=== PATIENT | female | born 1960 | race Caucasian/White ===

== ENCOUNTER → 2018-08-04 13:27 | Outpatient (CLI) | payer BC, SELFPAY ==
--- NOTE | 2018-08-04 | DI.MRI.S_ITS ---
PROCEDURE: MR HEAD/BRAIN WO/W CON INDICATIONS: VISION LOSS TECHNIQUE: Noncontrast axial T1 spin echo, axial T2 fast spin echo, sagittal and axial FLAIR, coronal T2 fast spin echo, axial gradient echo, axial diffusion and ADC through the brain. After the administration of contrast, axial and coronal 3D VIBE or T1 spin echo with fat saturation through the brain. COMPARISON: [facility], , MRI HEAD W/O CONTRAST, 03/18/2003, 10:13. FINDINGS: Image quality: Excellent. CSF Spaces: Basal cisterns are patent. No extra-axial fluid collections. Ventricles are normal in size and shape. Brain: No midline shift. 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 No intracranial bleeds or masses. No abnormal intracranial enhancement. The brainstem appears normal. Diffusion-weighted images demonstrate no acute ischemic insults. No chronic ischemic insults. Normal intravascular flow voids are present. Skull and face: Calvarial marrow is normal in signal. Orbits appear normal. Sinuses: Sinuses and mastoids appear clear. IMPRESSION: 1. No acute intracranial abnormality. No explanation for vision loss. 2. 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 Dictated by: Luis Rutledge M.D. on 08/04/2018 at 16:14 Approved by: Luis Rutledge M.D. on 08/04/2018 at 16:16
== END ==
PROVIDERS: PCP Family Medicine; Visit Provider Family Medicine
DX: H54.7 Unspecified visual loss (principal)
CPT/HCPCS: 70553; A9579

== ENCOUNTER → 2019-03-11 07:44 | Outpatient (CLI) | payer BC, SELFPAY ==
--- NOTE | 2019-03-11 | DI.MG.S_ITS ---
BILATERAL DIGITAL SCREENING MAMMOGRAM 3D/2D WITH CAD: 03/11/2019 CLINICAL: Routine screening. Family history of breast cancer. Comparison is made to exams dated: 02/19/2018 mammogram, 12/25/2016 mammogram, and 12/22/2015 mammogram - [facility]. The tissue of both breasts is heterogeneously dense. This may lower the sensitivity of mammography. Current study was also evaluated with a Computer Aided Detection (CAD) system. No significant masses, calcifications, or other findings are seen in either breast. There has been no significant interval change. IMPRESSION: NEGATIVE There is no mammographic evidence of malignancy. A 1 year screening mammogram is recommended. This exam was interpreted at Station ID: [id number]. NOTE: For mammograms, a report in lay terms will be sent to the patient. Approximately 15% of breast malignancies will not be visualized mammographically. In the management of a palpable breast mass, a negative mammogram must not discourage biopsy of a clinically suspicious lesion. Electronically Signed By: Simon escobar/kamla:03/11/2019 12:28:28 copy to: WENDY REINOSO letter sent: Normal Exam ACR BI-RADS Category 1: Negative 3341F
== END ==
PROVIDERS: PCP Family Medicine; Referring Provider Nurse Practitioner Family; Visit Provider Family Medicine
DX: Z12.31 Encounter for screening mammogram for malignant neoplasm of breast (principal); Z80.3 Family history of malignant neoplasm of breast
CPT/HCPCS: 77063; 77067

== ENCOUNTER → 2020-04-19 13:19 | Outpatient (CLI) | payer BC, SELFPAY ==
--- NOTE | 2020-04-19 | DI.MG.S_ITS ---
BILATERAL DIGITAL SCREENING MAMMOGRAM 3D/2D WITH CAD: 04/19/2020 CLINICAL: Routine screening. Family history of breast cancer. Comparison is made to exams dated: 03/11/2019 mammogram, 02/19/2018 mammogram, and 12/25/2016 mammogram - [facility]. The tissue of both breasts is heterogeneously dense. This may lower the sensitivity of mammography. Current study was also evaluated with a Computer Aided Detection (CAD) system. No significant masses, calcifications, or other findings are seen in either breast. There has been no significant interval change. IMPRESSION: NEGATIVE There is no mammographic evidence of malignancy. A 1 year screening mammogram is recommended. This exam was interpreted at Station ID: [id number]. NOTE: For mammograms, a report in lay terms will be sent to the patient. Approximately 15% of breast malignancies will not be visualized mammographically. In the management of a palpable breast mass, a negative mammogram must not discourage biopsy of a clinically suspicious lesion. Electronically Signed By: Ema armando/kamla:04/19/2020 13:56:17 letter sent: Normal Exam ACR BI-RADS Category 1: Negative 3341F
== END ==
PROVIDERS: PCP Family Medicine; Referring Provider Internal Medicine; Visit Provider Internal Medicine
DX: Z12.31 Encounter for screening mammogram for malignant neoplasm of breast (principal); Z80.3 Family history of malignant neoplasm of breast
CPT/HCPCS: 77063; 77067

== ENCOUNTER → 2020-08-30 15:01 | Outpatient (CLI) | payer BC, SELFPAY ==
--- NOTE | 2020-08-30 | DI.RAD.S_ITS ---
PROCEDURE: XR ANKLE RT MIN 3V INDICATIONS: RT ANKLE PAIN TECHNIQUE: 3 views of the ankle were acquired. COMPARISON: [facility], CR, FOOT 3V RIGHT, 09/08/2010, 13:12. [facility], CR, XR FOOT RT MIN 3V, 08/30/2020, 15:04. FINDINGS: Bones: No fractures or dislocations. Ankle mortise is normally aligned. No suspicious bony lesions. Medial malleolar fixation with hardware intact and good anatomic alignment. Soft tissues: No tibiotalar joint effusion. Achilles tendon appears normal. IMPRESSION: Medial malleolar fixation as above.. Dictated by: Bridgett Osorio M.D. on 08/30/2020 at 16:25 Approved by: Bridgett Osorio M.D. on 08/30/2020 at 16:27
--- NOTE | 2020-08-30 | DI.RAD.S_ITS ---
PROCEDURE: XR FOOT RT MIN 3V INDICATIONS: RT FOOT PAIN TECHNIQUE: 3 views of the foot were acquired. COMPARISON: [facility], CR, XR ANKLE RT MIN 3V, 08/30/2020, 15:06. [facility], CR, FOOT 3V RIGHT, 09/08/2010, 13:12. FINDINGS: Bones: No fractures or dislocations. Medial malleolar fixation with stable alignment and no hardware fracture. Soft tissues: No tibiotalar joint effusion. Achilles tendon appears normal. IMPRESSION: Medial malleolar fixation as above. Dictated by: Bridgett Osorio M.D. on 08/30/2020 at 16:23 Approved by: Bridgett Osorio M.D. on 08/30/2020 at 16:25
== END ==
PROVIDERS: PCP Family Medicine; Referring Provider Family Medicine; Visit Provider Family Medicine
DX: M25.571 Pain in right ankle and joints of right foot (principal)
CPT/HCPCS: 73610; 73630

== ENCOUNTER → 2021-03-20 10:31 | Outpatient (CLI) | payer BC, SELFPAY ==
--- NOTE | 2021-03-20 | DI.RAD.S_ITS ---
PROCEDURE: XR NASAL BONES MIN 3V INDICATIONS: right nose pain TECHNIQUE: 3 views of the nasal bones acquired. COMPARISON: None. FINDINGS: Bones: No fractures or dislocations. Nasal septum is midline. Normal nasociliary nerve grooves are noted. Soft tissues: No suspicious soft tissue calcifications. IMPRESSION: No trauma found. If unusual symptomatology persists follow-up by high-resolution thin-section CT scanning may become necessary. Dictated by: Jaswant Carter M.D. on 03/20/2021 at 11:15 Approved by: Jaswant Carter M.D. on 03/20/2021 at 11:15
== END ==
PROVIDERS: PCP Family Medicine; Referring Provider Family Medicine; Visit Provider Family Medicine
DX: J34.89 Other specified disorders of nose and nasal sinuses (principal)
CPT/HCPCS: 70160

== ENCOUNTER → 2021-04-20 11:10 | Outpatient (CLI) | payer BC, SELFPAY ==
--- NOTE | 2021-04-20 | DI.MG.S_ITS ---
BILATERAL DIGITAL SCREENING MAMMOGRAM 3D/2D WITH CAD: 04/20/2021 CLINICAL: Routine screening. Family history of breast cancer. Comparison is made to exams dated: 04/19/2020 mammogram, 03/11/2019 mammogram, and 02/19/2018 mammogram - [facility]. The tissue of both breasts is heterogeneously dense. This may lower the sensitivity of mammography. Current study was also evaluated with a Computer Aided Detection (CAD) system. No significant masses, calcifications, or other findings are seen in either breast. There has been no significant interval change. IMPRESSION: NEGATIVE There is no mammographic evidence of malignancy. A 1 year screening mammogram is recommended. This exam was interpreted at Station ID: [id number]. NOTE: For mammograms, a report in lay terms will be sent to the patient. Approximately 15% of breast malignancies will not be visualized mammographically. In the management of a palpable breast mass, a negative mammogram must not discourage biopsy of a clinically suspicious lesion. Electronically Signed By: Jean Carlos el/kamla:04/20/2021 16:10:16 letter sent: Normal Exam ACR BI-RADS Category 1: Negative 3341F
== END ==
PROVIDERS: PCP Family Medicine; Referring Provider Family Medicine; Visit Provider Family Medicine
DX: Z12.31 Encounter for screening mammogram for malignant neoplasm of breast (principal)
CPT/HCPCS: 77063; 77067

== ENCOUNTER → 2021-11-08 10:48 | Outpatient (CLI) | payer BC, SELFPAY ==
[2021-11-08 11:45] LABS: COVID19 -Nasal RAPID Negative (Negative)
== END ==
PROVIDERS: PCP Family Medicine; Visit Provider Physician Assistant
DX: Z20.822 Contact with and (suspected) exposure to COVID-19 (principal)
CPT/HCPCS: 87635

== ENCOUNTER → 2022-05-13 13:27 | Outpatient (CLI) | payer BC, SELFPAY ==
--- NOTE | 2022-05-13 | DI.MG.S_ITS ---
BILATERAL DIGITAL SCREENING MAMMOGRAM 3D/2D WITH CAD: 05/13/2022 CLINICAL: Routine screening. Family history of breast cancer. Comparison is made to exams dated: 04/20/2021 mammogram, 04/19/2020 mammogram, and 03/11/2019 mammogram - [facility]. The tissue of both breasts is heterogeneously dense. This may lower the sensitivity of mammography. Current study was also evaluated with a Computer Aided Detection (CAD) system. No significant masses, calcifications, or other findings are seen in either breast. There has been no significant interval change. IMPRESSION: NEGATIVE There is no mammographic evidence of malignancy. A 1 year screening mammogram is recommended. This exam was interpreted at Station ID: [id number]. NOTE: For mammograms, a report in lay terms will be sent to the patient. Approximately 15% of breast malignancies will not be visualized mammographically. In the management of a palpable breast mass, a negative mammogram must not discourage biopsy of a clinically suspicious lesion. Electronically Signed By: Nadir Shah acr/reymundorad:05/13/2022 14:16:14 letter sent: Normal Exam ACR BI-RADS Category 1: Negative 3341F
== END ==
PROVIDERS: PCP Family Medicine; Referring Provider Family Medicine; Visit Provider Family Medicine
DX: Z12.31 Encounter for screening mammogram for malignant neoplasm of breast (principal); Z80.3 Family history of malignant neoplasm of breast
CPT/HCPCS: 77063; 77067

== ENCOUNTER → 2023-07-31 06:50 | Outpatient (CLI) | payer BC, SELFPAY ==
--- NOTE | 2023-07-31 | DI.ECHO.S_ITS ---
[facility] +---------+ : : [address] [address] : : : : [id number] : : : : Phone: [phone]+ Echocardiogram Report + + :Name: HERMES LOVELACE Study Date: 07/31/2023 Height: 66 in : :[facility] ReadingLocation: Weight: 150 lb : : Gender: Female BSA: 1.8 m2 : :: 1960 Age: 63 yrs BP: 109/81 mmHg: :Reason For Study: Palpitations : :Ordering Physician: ROSE, : :SKYLAR Performed By: Marisa Monahan : :Referring: SKYLAR ROSE : + + Interpretation Summary The left ventricle is normal in size and wall thickness. Left ventricular systolic function appears normal without focal wall motion abnormalities. The ejection fraction is estimated to be 55-60%. Diastolic parameters suggest a relaxation abnormality of the left ventricle, consistent with probable normal filling pressures. The right ventricle is normal in size and function. The right ventricular systolic pressure is estimated to be at least 13 mmHg based on an estimated right atrial pressure of 3 mm Hg. The left atrial size is normal. There is no significant valvular heart disease. The aortic root is normal size. Procedure: A two-dimensional transthoracic echocardiogram with color flow and Doppler was performed. The study quality was technically adequate. There is no prior echocardiogram noted for this patient. The patient was in normal sinus rhythm during the exam. The patient had frequent PVCs during the exam. Left Ventricle: The left ventricle is normal in size and wall thickness. Left ventricular systolic function appears normal without focal wall motion abnormalities. The ejection fraction is estimated to be 55-60%. Diastolic parameters suggest a relaxation abnormality of the left ventricle, consistent with probable normal filling pressures. Right Ventricle: The right ventricle is normal in size and function. Atria: The left atrial size is normal. Right atrial size is normal. There is no Doppler evidence for an interatrial shunt. Mitral Valve: The mitral valve leaflets appear mildly thickened, but open well. There is no mitral valve stenosis. There is trace mitral regurgitation. Aortic Valve: The aortic valve is trileaflet. The aortic valve opens well. There is no aortic valve stenosis. No aortic regurgitation is present. Tricuspid Valve: The tricuspid valve is normal. There is no tricuspid stenosis. There is trace tricuspid regurgitation. The right ventricular systolic pressure is estimated to be at least 13 mmHg based on an estimated right atrial pressure of 3 mm Hg. Pulmonic Valve: The pulmonic valve is not well visualized. There is no pulmonic valvular stenosis. There is trace pulmonic regurgitation. There is no significant valvular heart disease. Great Vessels: The aortic root is normal size. The ascending aorta is normal in size. The pulmonary artery is normal size. The IVC is of normal diameter and collapses greater than 50% with a sniff. This suggests a low right atrial pressure of 3 mm Hg. Pericardium/ Pleura There is no pericardial effusion. MMode/2D Measurements & Calculations LVIDd: 4.1 cm LVOT diam: 1.9 cm LVIDs: 2.5 cm Ao root diam: 3.1 cm FS: 39.0 % asc Aorta Diam: 2.8 cm EPSS: 0.80 cm IVSd: 0.70 cm LVPWd: 0.90 cm LV couch. diameter/BSA (cm/m^2): 2.3 LV sys. diameter/BSA (cm/m^2): 1.4 LA A2 area: 17.1 cm2 RA long axis: 4.5 cm LA A4 area: 12.8 cm2 RA area: 13.9 cm2 LA length (vol): 5.1 cm RA vol: 35.9 ml LA vol: 36.3 ml RA : 20.3 ml/m2 LA vol index: 20.5 ml/m2 RVD1 (basal): 3.2 cm LVLs ap4: 5.4 cm LVLd ap2: 6.5 cm TAPSE_phl: 1.9 cm LVLs ap2: 5.7 cm Doppler Measurements & Calculations Ao V2 max: 112.0 cm/sec LVOT Max Magdaleno: 106.0 cm/sec Ao V2 mean: 78.5 cm/sec LV V1 max P.5 mmHg Ao max P.0 mmHg LV V1 VTI: 20.3 cm Ao mean P.0 mmHg SOREN(I,D): 2.0 cm2 Ao V2 VTI: 26.7 cm SOREN(V,D): 2.6 cm2 sev ratio: 0.76 SOREN indexed to BSA (cm^2/m^2): 1.2 MV E max magdaleno: 80.9 cm/sec TR max magdaleno: 154.0 cm/sec MV A max magdaleno: 86.7 cm/sec TR max P.5 mmHg MV E/A: 0.93 PA V2 max: 59.4 cm/sec Med Peak E' Magdaleno: 8.3 cm/sec PA V2 mean: 40.7 cm/sec E/E' med: 9.7 PA mean P.0 mmHg Lat Peak E' Magdaleno: 7.5 cm/sec PA pr(Accel): 31.3 mmHg E/E' lat: 10.8 E/e' average: 10.2 MV dec time: 0.17 sec SV(LVOT): 54.8 ml AV VR_phl: 0.95 Reading Physician:08:04 AM
== END ==
PROVIDERS: PCP Family Medicine; Referring Provider Family Medicine; Visit Provider Family Medicine
DX: R00.2 Palpitations (principal)
CPT/HCPCS: 93306

== ENCOUNTER → 2023-08-18 14:46 | Outpatient (CLI) | payer BC, SELFPAY ==
--- NOTE | 2023-08-18 | DI.MG.S_ITS ---
BILATERAL DIGITAL SCREENING MAMMOGRAM 3D/2D WITH CAD: 08/18/2023 CLINICAL: Routine screening. Family history of breast cancer. Comparison is made to exams dated: 05/13/2022 mammogram, 04/20/2021 mammogram, and 04/19/2020 mammogram - [facility]. Both breasts are heterogeneously dense, which may obscure small masses (category c / 51-75% glandular tissue). Current study was also evaluated with a Computer Aided Detection (CAD) system. No significant masses, calcifications, or other findings are seen in either breast. IMPRESSION: NEGATIVE There is no mammographic evidence of malignancy. A 1 year screening mammogram is recommended. Based on the Tyrer Cuzick model (a risk assessment model) the patient's lifetime risk is 16.2% and her 10 year risk is 7.0%. According to the ACR, ACS, and NCCN guidelines, an annual breast MRI exam along with mammogram is recommended if the patient's lifetime risk is 20% or greater. This exam was interpreted at Station ID: [id number]. NOTE: For mammograms, a report in lay terms will be sent to the patient. Approximately 15% of breast malignancies will not be visualized mammographically. In the management of a palpable breast mass, a negative mammogram must not discourage biopsy of a clinically suspicious lesion. Electronically Signed By: Tuyet diehl/kamla:08/19/2023 08:29:54 letter sent: Normal Exam ACR BI-RADS Category 1: Negative 3341F
== END ==
PROVIDERS: PCP Family Medicine; Referring Provider Family Medicine; Visit Provider Family Medicine
DX: Z12.31 Encounter for screening mammogram for malignant neoplasm of breast (principal); Z80.3 Family history of malignant neoplasm of breast
CPT/HCPCS: 77063; 77067

== ENCOUNTER → 2024-05-05 16:30 | Outpatient (CLI) | payer BC, SELFPAY ==
[2024-05-05 18:48] LABS: Thyroid Stimulating Hormone 2.82 uIU/mL (0.47-4.68)
[2024-05-05 19:05] LABS: Vitamin B12 956 pg/mL (239-931)
== END ==
PROVIDERS: PCP Family Medicine; Referring Provider Family Medicine; Visit Provider Family Medicine
DX: R53.83 Other fatigue (principal); E03.9 Hypothyroidism, unspecified
CPT/HCPCS: 36415; 82306; 82607; 84443

== ENCOUNTER → 2024-08-18 16:47 | Outpatient (CLI) | payer BC, SELFPAY ==
--- NOTE | 2024-08-18 | DI.MG.S_ITS ---
BILATERAL DIGITAL SCREENING MAMMOGRAM 3D/2D WITH CAD: 08/18/2024 CLINICAL: Routine screening. Family history of breast cancer. Comparison is made to exams dated: 08/18/2023 mammogram, 05/13/2022 mammogram, and 04/20/2021 mammogram - [facility]. The breasts are heterogeneously dense, which may obscure small masses (category c / 51-75% glandular tissue). Current study was also evaluated with a Computer Aided Detection (CAD) system. There is a possible developing round low density asymmetry with an indistinct margin in the left breast middle depth superior region seen on the mediolateral oblique view only. No other significant masses, calcifications, or other findings are seen in either breast. IMPRESSION: INCOMPLETE: NEED ADDITIONAL IMAGING EVALUATION The possible developing round low density asymmetry in the left breast is indeterminate. Additional views with possible ultrasound are recommended. Based on the Tyrer Cuzick model (a risk assessment model) the patient's lifetime risk is 15.8% and her 10 year risk is 7.0%. According to the ACR, ACS, and NCCN guidelines, an annual breast MRI exam along with mammogram is recommended if the patient's lifetime risk is 20% or greater. This exam was interpreted at Station ID: [id number]. NOTE: For mammograms, a report in lay terms will be sent to the patient. Approximately 15% of breast malignancies will not be visualized mammographically. In the management of a palpable breast mass, a negative mammogram must not discourage biopsy of a clinically suspicious lesion. Electronically Signed By: Amalia mejia/kamla:08/19/2024 12:31:11 letter sent: Additional Imaging Needed ACR BI-RADS Category 0: Incomplete: Need Additional Imaging Evaluation
== END ==
PROVIDERS: PCP Family Medicine; Referring Provider Family Medicine; Visit Provider Family Medicine
DX: Z12.31 Encounter for screening mammogram for malignant neoplasm of breast (principal); Z80.3 Family history of malignant neoplasm of breast; R92.333 Mammographic heterogeneous density, bilateral breasts
CPT/HCPCS: 77063; 77067

== ENCOUNTER → 2024-09-21 08:40 | Outpatient (CLI) | payer BC, SELFPAY ==
--- NOTE | 2024-09-21 08:41 | DI.MG.S_ITS ---
UNILATERAL LEFT DIGITAL DIAGNOSTIC MAMMOGRAM 3D/2D WITH ADDITIONAL VIEWS: 09/21/2024 CLINICAL: Additional evaluation requested from prior study. Comparison is made to exams dated: 08/18/2024 mammogram, 08/18/2023 mammogram, and 05/13/2022 mammogram - [facility]. The breasts are heterogeneously dense, which may obscure small masses (category c / 51-75% glandular tissue). There is an asymmetry in the left breast anterior depth superior region seen on the mediolateral oblique view only. This is not seen in additional views. No other significant masses or calcifications are seen in the breast. IMPRESSION: INCOMPLETE: NEED ADDITIONAL IMAGING EVALUATION The asymmetry in the left breast is indeterminate. A second look with ultrasound is recommended and will immediately follow. Based on the Tyrer Cuzick model (a risk assessment model) the patient's lifetime risk is 15.8% and her 10 year risk is 7.0%. According to the ACR, ACS, and NCCN guidelines, an annual breast MRI exam along with mammogram is recommended if the patient's lifetime risk is 20% or greater. This exam was interpreted at Station ID: [id number]. NOTE: For mammograms, a report in lay terms will be sent to the patient. Approximately 15% of breast malignancies will not be visualized mammographically. In the management of a palpable breast mass, a negative mammogram must not discourage biopsy of a clinically suspicious lesion. Electronically Signed By: Forrest Ohara M.D. slc/:09/21/2024 09:38:43 letter sent: Additional Imaging Needed ACR BI-RADS Category 0: Incomplete: Need Additional Imaging Evaluation
--- NOTE | 2024-09-21 08:42 | DI.US.S_ITS ---
LIMITED ULTRASOUND OF LEFT BREAST: 09/21/2024 CLINICAL: Patient returns today to evaluate a focal asymmetry in the left breast. Comparison is made to exams dated: 09/21/2024 mammogram, 08/18/2024 mammogram, and 08/18/2023 mammogram - [facility]. Real-time ultrasound of the left breast 12 o'clock, and retroareolar regions was performed. Munoz scale images of the real-time examination were reviewed. No significant abnormalities were seen sonographically in the left breast. IMPRESSION: NEGATIVE There is no sonographic evidence of malignancy. A 1 year screening mammogram is recommended. Exam findings were conveyed to the patient. This exam was interpreted at Station ID: [id number]. Electronically Signed By: Forrest Ohara M.D. slc/:09/21/2024 10:17:00 letter sent: Normal Exam ACR BI-RADS Category 1: Negative
== END ==
LOC: MAMMO 08:40
PROVIDERS: PCP Family Medicine; Referring Provider Family Medicine; Visit Provider Family Medicine
DX: R92.8 Other abnormal and inconclusive findings on diagnostic imaging of breast (principal); R92.333 Mammographic heterogeneous density, bilateral breasts
CPT/HCPCS: 76642; 77065; G0279

== ENCOUNTER 2025-06-09 16:34 | Emergency (ER) | payer BC, SELFPAY ==
[2025-06-09 17:09] VITALS: BP 143/76; PULSE 71; RESP 18; TEMP 36.8; O2SAT 97; BMI 24.2
[2025-06-09 18:27] LABS: Appearance Urine UA CLEAR; Bilirubin Urine UA NEGATIVE (NEGATIVE); Color Urine UA YELLOW; Glucose Urine UA NEGATIVE (Negative); Ketones Urine UA NEGATIVE (NEGATIVE); Leukocyte Esterase Urine UA 1+ (NEGATIVE); Nitrite Urine UA NEGATIVE (Negative); Occult Blood Urine UA NEGATIVE (Negative); Protein Urine UA NEGATIVE (Negative); Specific Gravity Urine UA 1.020 (1.000-1.035); Urobilinogen Urine UA 0.2 E.U./dL (0.2)
[2025-06-09 18:30] LABS: pH Urine UA 6.0 (4.5-8.0)
[2025-06-09 18:36] LABS: Culture Indicated Urine Specimen Cultured
[2025-06-09 18:37] LABS: Add Manual Diff / Slide Review NO; Hematocrit 40.5 % (36-46); Hemoglobin 14.0 g/dL (12.0-16.0); Lymphocytes Absolute Auto 2100 /uL (1100-4500); Mean Corpuscular HGB Conc 34.6 % (30-36); Mean Corpuscular Hemoglobin 30.1 PG (26-34); Mean Corpuscular Volume 87.0 fL (80-100); Platelet Count 219 X10^3/uL (150-400)
[2025-06-09 18:39] LABS: Alanine Aminotransferase 16 IU/L (<35); Albumin 4.3 g/dL (3.5-5.0); Albumin Globulin Ratio 1.2 (1.0-2.8); Alkaline Phosphatase 61 U/L (38-126); Blood Urea Nitrogen 29 mg/dL (7-17); Calcium 9.3 mg/dL (8.4-10.2); Carbon Dioxide 26 mmol/L (22-32); Chloride 105 mmol/L (98-107); Estimated Glomerular Filt Rate > 60 mL/min (>60); Globulin 3.5 g/dL (1.7-4.1); Glucose 98 mg/dL (70-99); HEMOLYSIS < 15 (0-50); Lipase 133 U/L (23-300); Potassium 4.1 mmol/L (3.4-5.1); Sodium 139 mmol/L (137-145); Total Protein 7.8 g/dL (6.3-8.2)
--- NOTE | 2025-06-09 21:30 | ED_ITS ---
HPI - Abdominal Pain General Chief Complaint: Abdominal Pain Stated Complaint: Lower abdominal pain Time Seen by Provider: 06/09/25 21:29 Source: patient Mode of arrival: Ambulatory History of Present Illness HPI narrative: 65-year-old female with history of pessary, intermittent suprapubic area discomfort last week, worse earlier today, seemed to stop her in her tracks when she had suprapubic area discomfort. No history of painful urination or frequency of urination. No fevers or chills. No nausea or vomiting. Currently not on any antibiotics. No vaginal discharge or bleeding. No flank area back pain. No history of kidney stones recalled. MD complaint: abdominal pain Related Data Home Medications ?Medication ?Instructions ?Recorded ?Confirmed Control Pill ( Control) 0 PO * [place] DOSE/FREQ UENCY ##0 09/08/10 11/08/21 MULTIVITAMIN (Multivitamin 1 cap PO EVERY DAY ##0 08/1811/08/21 -) levothyroxine 50 mcg tablet 50 mcg PO DAILY 09/05/23 1 (Synthroid) Previous Rx's ?Medication ?Instructions ?Recorded erythromycin 5 mg/gram (0.5 %) eye 1 applic EYE-BOTH Q ID #3.5 grams 09/05/23 ointment cephalexin 500 mg capsule 500 mg PO QID 7 days #28 cap s 06/09/25 phenazopyridine 200 mg tablet 200 mg PO TID PRN pain # 10 tabs 06/09/25 (Pyridium) Allergies Allergy/AdvReac Type Severity Reaction Status Date / Time No Known Drug Allergies Allergy Unverified 09/05/23 07:29 Patient History Social History Smoking Status: Never smoker Smoking Status: Never smoker Exam Narrative Exam Narrative: GENERAL: Well-developed patient, in mild distress. HEAD: Atraumatic. Normocephalic. EYES: Pupils equal round and reactive. Extraocular motions intact. No scleral icterus. No injection or drainage. ENT: Nose without bleeding, purulent drainage. No gross facial trauma or edema. NECK: Trachea midline. Moves neck well. CARDIOVASCULAR: Regular rate and rhythm without murmurs, gallops, or rubs. RESPIRATORY: Clear to auscultation. Breath sounds equal bilaterally. No wheezes, rales, or rhonchi. GASTROINTESTINAL: Abdomen soft, non-tender, nondistended. EXTREMITIES: No edema or joint tenderness. NEURO: AOx3. Motor functions grossly nonfocal. SKIN: No rash or erythema of visible areas Initial Vital Signs Initial Vital Signs: Vital Signs Temperature 98.2 F 06/09/25 17:09 Pulse Rate 71 06/09/25 17:09 Respiratory Rate 18 06/09/25 17:09 Blood Pressure 143/76 H 06/09/25 17:09 Pulse Oximetry 97 06/09/25 17:09 Oxygen Delivery Method Room Air 06/09/25 17:09 Course Orders Ordered: Discontinued Medications Cephalexin HCl (Cephalexin 250 Mg Capsule) 500 mg PO NOW ONE Stop: 06/09/25 21:40 Last Admin: 06/09/25 21:44 Dose: 500 mg Documented By: MARIN Ondansetron HCl (Ondansetron 4 Mg/2 Ml Inj) 4 mg IV NOW PRN PRN Reason: Nausea And Vomiting Ondansetron HCl (Ondansetron 4 Mg Odt) 4 mg PO NOW PRN PRN Reason: Nausea And Vomiting Phenazopyridine HCl (Phenazopyridine 100 Mg Tablet) 200 mg PO NOW ONE Stop: 06/09/25 21:40 Last Admin: 06/09/25 21:44 Dose: 200 mg Documented By: MARIN Vital Signs Vital signs: Vital Signs - 8 hr 06/09/25 17:09 Temperature 98.2 F Pulse Rate 71 Respiratory Rate 18 Blood Pressure 143/76 H Pulse Oximetry 97 Oxygen Delivery Method Room Air MDM - Abdominal Pain Lab Data Attestation: I reviewed the patient's lab results. Lab results narrative: White blood cell count 7600, hemoglobin 14, platelets adequate. Glucose 98 normal. Renal function adequate. Serum CO2 and electrolytes normal. Liver functions and lipase normal. Urinalysis with bacteriuria and leukocyte esterase positive, urine culture triggered by protocol. 06/09/25 18:13 06/09/25 18:13 Labs: Lab Results 06/09/25 Range/Units 18:13 WBC 7.6 (4.5-11.0) X10^3/uL RBC 4.65 (4.0-5.2) X10^6/uL Hgb 14.0 (12.0-16.0) g/dL Hct 40.5 (36-46) % MCV 87.0 (80-100) fL MCH 30.1 (26-34) PG MCHC 34.6 (30-36) % RDW 14.0 (11.6-14.8) % Plt Count 219 (150-400) X10^3/uL Neut % (Auto) 61.5 (50-75) % Lymph % (Auto) 27.2 (25-40) % [facility] % (Auto) 8.5 (3-14) % Eos % (Auto) 2.2 (2-4) % Baso % (Auto) 0.6 (0-2) % Neut # (Auto) 4700 (0464-1668) /uL Lymph # (Auto) 2100 (5608-2640) /uL [facility] # (Auto) 600 (0-900) /uL Eos # (Auto) 200 (0-450) /uL Baso # (Auto) 0 (0-100) /uL Sodium 139 (137-145) mmol/L Potassium 4.1 (3.4-5.1) mmol/L Chloride 105 (98-107) mmol/L Carbon Dioxide 26 (22-32) mmol/L BUN 29 H (7-17) mg/dL Creatinine 0.72 (0.52-1.04) mg/dL Estimated GFR > 60 (>60) mL/min BUN/Creatinine Ratio 40.3 H (6-22) Glucose 98 (70-99) mg/dL Calcium 9.3 (8.4-10.2) mg/dL Total Bilirubin 0.3 (0.2-1.3) mg/dL AST 25 (14-36) IU/L ALT 16 (<35) IU/L Alkaline Phosphatase 61 (38-126) U/L Total Protein 7.8 (6.3-8.2) g/dL Albumin 4.3 (3.5-5.0) g/dL Globulin 3.5 (1.7-4.1) g/dL Albumin/Globulin Ratio 1.2 (1.0-2.8) Lipase 133 (23-300) U/L Urine Color Yellow Urine Appearance Clear Urine pH 6.0 (4.5-8.0) Ur Specific Kathleen 1.020 (1.000-1.035) Urine Protein Negative (Negative) Urine Glucose (UA) Negative (Negative) g/dL Urine Ketones Negative (NEGATIVE) Urine Occult Blood Negative (Negative) Urine Nitrate Negative (Negative) Urine Bilirubin Negative (NEGATIVE) Urine Urobilinogen 0.2 (0.2) E.U./dL Ur Leukocyte Esterase 1+ H (NEGATIVE) Urine RBC None seen (0-5/HPF) Urine WBC 1-5/hpf (0-5/HPF) Ur Squamous Epith Cells 0-1 /hpf (0-5/HPF) Urine Bacteria Moderate (10-30) H (None) Ur Culture Indicated? Specimen cultured Vol Urine Centrifuged 10ml (spun) MDM Narrative Medical decision making narrative: 65 year old female with suprapubic area discomfort, urgency to urinate. No know history kidney stones, no recent antibiotics. Heading out soon for boat trip to [place] with . Afebrile, SIRS screen negative. No abdominal tenderness. WBC normal. Consider cystitis. UA pending. UA suspicious for infection, urine culture requested. Doubt need for advanced abdominopelvic imaging at this time. Trial of antibiotics, given dose cephalexin now, Rx for QID seven days, more frequent and longer course given they are heading to boat trip into [place]. Cell phone noted at triage, to contact if she has resistant organism. Pyridium dose also given. DC on oral cephalexin and pyridiu, prescriptions sent to her pharmacy. DC home with . Discharge Plan Departure Patient Disposition: Home Clinical Impression: Urinary tract infection Activity Restrictions/Additional Instructions: Suprapubic area low central abdominal discomfort episodic. No trauma or injury recalled. Urinalysis suspicious for infection of the urine. There was urine and inflammatory markers present in your urine test specimen, urine culture was triggered by protocol. No known kidney stones. No fever at triage. Screening labs blood tests reassuring. First dose antibiotic cephalexin given, with bladder anesthetic Pyridium oral doses. Prescriptions for further antibiotics and further Pyridium sent to your pharmacy. Plenty of fluids. If your urine culture is resistant then hopefully would be contacted to consider a different choice of oral antibiotic. You mentioned that your cell phone was requested at triage. Take antibiotics as directed. Drink plenty of fluids. Consider recheck of symptoms in next couple of days if your in some kind of clinic setting to be rechecked, though you reported that you would be likely starting a boat vacation trip into [place]. Return to this/nearest emergency department for any change worsening symptoms or any concerns prior. Prescriptions: New cephalexin 500 mg capsule 500 mg PO QID 7 Days Qty: 28 0RF phenazopyridine [Pyridium] 200 mg tablet 200 mg PO TID PRN (Reason: pain) Qty: 10 0RF No Action levothyroxine [Synthroid] 50 mcg tablet 50 mcg PO DAILY erythromycin 5 mg/gram (0.5 %) ointment 1 applic EYE-BOTH QID Qty: 3.5 0RF Control Pill ( Control) 0 PO * DOSE/FREQUENCY Qty: 0 MULTIVITAMIN (Multivitamin -) 1 cap PO EVERY DAY Qty: 0 Referrals: Mervin Santizo MD [Primary Care Provider, Family Practice] Stand Alone Forms: Patient Portal/API
[2025-06-09] MEDS: PHENAZOPYRIDINE 100 MG TABLET 200 MG PO (21:44)
[2025-06-09 21:47] VITALS: BP 144/67; PULSE 62; O2SAT 99
== END 2025-06-09 22:07 | disposition home or self-care (01) ==
PROVIDERS: Emergency Medicine; Emergency Provider Emergency Medicine; PCP Family Medicine
DX: N39.0 Urinary tract infection, site not specified (principal)
CPT/HCPCS: 36415; 80053; 81001; 83690; 85025; 87086; 99283

== ENCOUNTER → 2025-08-19 08:08 | Outpatient (CLI) | payer BC, SELFPAY ==
--- NOTE | 2025-08-19 08:09 | DI.MG.S_ITS ---
MM screening mammo BI: 08/19/2025. BI-RADS: 1 CLINICAL: 65-year old female for bilateral screening mammogram. Tyrer-Cuzick lifetime risk of 10.0%. No personal or first-degree family history of breast cancer. Current reported family history of breast cancer: paternal grandmother. PRIOR EXAMS 09/21/2024, 08/18/2024, 08/18/2023, 05/13/2022. MAMMOGRAPHY TECHNIQUE: 2D and 3D (tomosynthesis) digital mammographic views obtained, with additional images as needed for full coverage. Current study was also evaluated with a Computer Aided Detection (CAD) system. DENSITY C. The breasts are heterogeneously dense, which may obscure small masses. MAMMOGRAPHY FINDINGS Bilateral: No suspicious mass, asymmetry, microcalcification, or other abnormality seen. IMPRESSION: * No evidence of malignancy. RECOMMENDATIONS Bilateral * Annual screening mammography. OVERALL ASSESSMENT CATEGORY BI-RADS-1: Negative. The [employer] recommends annual screening mammography beginning at age 40 for women with average risk of breast cancer. ELECTRONICALLY SIGNED: Rosie Quinones M.D. on 08/19/2025 at 10:11:12 AM PT Interpreting Station ID: [id number]
== END ==
LOC: MAMMO 08:08
PROVIDERS: PCP Family Medicine; Referring Provider Family Medicine; Visit Provider Family Medicine
DX: Z12.31 Encounter for screening mammogram for malignant neoplasm of breast (principal); R92.333 Mammographic heterogeneous density, bilateral breasts; Z80.3 Family history of malignant neoplasm of breast
CPT/HCPCS: 77063; 77067

== ENCOUNTER → 2025-11-01 15:30 | Outpatient (CLI) | payer BC, SELFPAY ==
[2025-11-01 15:44] LABS: Appearance Urine UA CLEAR; Bilirubin Urine UA NEGATIVE (NEGATIVE); Color Urine UA YELLOW; Glucose Urine UA NEGATIVE (Negative); Ketones Urine UA NEGATIVE (NEGATIVE); Leukocyte Esterase Urine UA NEGATIVE (NEGATIVE); Nitrite Urine UA NEGATIVE (Negative); Occult Blood Urine UA NEGATIVE (Negative); Protein Urine UA NEGATIVE (Negative); Specific Gravity Urine UA 1.010 (1.000-1.035); Urobilinogen Urine UA 0.2 E.U./dL (0.2)
[2025-11-01 15:45] LABS: pH Urine UA 5.5 (4.5-8.0)
[2025-11-01 15:56] LABS: Culture Indicated Urine Cult Not Indicated
== END ==
PROVIDERS: PCP Family Medicine; Referring Provider Obstetrics & Gynecology Gynecology; Visit Provider Obstetrics & Gynecology Gynecology
DX: N81.6 Rectocele (principal); N95.2 Postmenopausal atrophic vaginitis; N81.4 Uterovaginal prolapse, unspecified; N81.11 Cystocele, midline
CPT/HCPCS: 81001